=== PATIENT | female | born 1990 | race Caucasian/White ===

== ENCOUNTER 2017-08-30 22:03 | Inpatient (IN) | payer BC ==
[~2017-08-30] VITALS: Ht 165.1 cm; Wt 166.6 kg
[~2017-08-30 22:03] MED LIST: FLINTSTONES WI1 EACH PO; NEXPLANON68 MG SC
[2017-08-31 06:12] VITALS: BP 131/84
[2017-08-31 11:57] VITALS: BP 121/64
[2017-08-31 15:00] VITALS: BP 127/62
[2017-08-31 20:07] VITALS: BP 135/63
[2017-09-01 00:36] VITALS: BP 111/57
[2017-09-01 03:46] VITALS: BP 130/76
[2017-09-01 06:28] LABS: HEMATOCRIT 39.6 % (36.0-46.0); HEMOGLOBIN 12.7 G/DL (11.9-15.5); MCH 26.9 PG (29.0-34.0); MCHC 32.1 G/DL (30.0-36.0); MCV 83.9 FL (83-99); PLATELET COUNT 311 K/uL (156-360); RBC DIS.WIDTH-CV 14.6 % (11.8-14.6); RBC DIS.WIDTH-SD 44.5 % (39-53); RED BLOOD COUNT 4.72 M/uL (3.80-5.20); WHITE BLOOD COUNT 12.4 K/uL (4.1-10.2)
[2017-09-01 08:08] VITALS: BP 120/78
[2017-09-01 08:45] LABS: CHLORIDE 105 MEQ/L (99-109); CREATININE 0.9 MG/DL (0.6-1.3); GFR ESTIMATE (CALCULATED) > 59 mL/min/; GLUCOSE 113 mg/dL (70-99); POTASSIUM 4.9 MEQ/L (3.7-5.4); SODIUM 139 MEQ/L (136-147); UREA NITROGEN (BUN) 10 mg/dL (9-23)
[2017-09-01 12:08] VITALS: BP 128/78
[2017-09-01] MEDS ORDERED: OMEPRAZOLE20 M2 PO (15:08)
[2017-09-01] MEDS ORDERED: DILAUDID4 MG PO (15:08)
[2017-09-01] MEDS ORDERED: COLACE100 MG PO (15:08)
[2017-09-01] MEDS ORDERED: ACTIGALL300 MG PO (15:08)
[2017-09-01] MEDS ORDERED: ZOFRAN8 MG PO (15:08)
== END 2017-09-01 15:57 | disposition home or self-care (01) | DRG 621 ==
LOC: 2SOUTH → ENRESERV 22:03 → 2SOUTH 08-31 05:41 → 2EAST 08-31 05:41 → 2SOUTH 08-31 09:37 → ENRESERV 08-31 10:52 → 2EAST 08-31 11:37 → 2SOUTH 08-31 13:07 → 2EAST 09-01 09:12
PROVIDERS: Surgery
PROC: 0DB64Z3 Excision of Stomach, Percutaneous Endoscopic Approach, Vertical (ICD-10-PCS; principal; 2017-09-01)
DX: E66.01 Morbid (severe) obesity due to excess calories (principal); Z68.44 Body mass index [BMI] 60.0-69.9, adult; K76.0 Fatty (change of) liver, not elsewhere classified
CPT/HCPCS: 80048; 85027; 86850; 86900; 86901; 88300; C9113; G0378; J0131; J0330; J1100; J1170; J1644; J2250; J2405; J2710; J2765; J3010; J3480; J7643; Q0175; S0074